=== PATIENT | male | born 1950 | race Caucasian/White ===

== ENCOUNTER 2019-01-02 12:17 | Inpatient (IN) ==
--- OUTSIDE RECORDS SUMMARY | 2019-01-02 12:21 | External Medical Summary | Continuity of Care Document ---
:1950 Author Name Miquel Ramirez, Provider Address Unavailable Unavailable , Care Team Providers Name Role Phone Houston Ramirez, Jeremy Grimes Unavailable [email or web address], [email or web address] Unavailable Unavailable Problems Active medical history not documented Allergies and Adverse Reactions Allergy history not documented Medications Medications not documented Procedures Procedures not documented Immunizations Immunizations not documented Plan of Treatment Planned Observations Planned Goals not documented Results No Known Results Results not documented
[2019-01-02] MEDS ORDERED: dilTIAZem HCl 5 MG/ML 5 ML VIAL IV STA (12:27)
[2019-01-02 13:03] LABS: Basophils # (auto) 0.03 K/uL (0-0.2); Basophils % (auto) 0.4 %; Eosinophils # (auto) 0.18 K/uL (0-0.5); Eosinophils % (auto) 2.5 %; Hematocrit (blood only) 39.2 % (42-52); Hemoglobin 12.9 g/dL (14.0-18.0); Immature Granulocytes # (auto) 0.03 K/uL (0.00-0.02); Immature Granulocytes % (auto) 0.4 %; Lymphocytes # (auto) 0.98 K/uL (1.2-3.4); Lymphocytes % (auto) 13.8 %; Mean Corpuscular Hemoglobin 28.7 pg (25-34); Mean Corpuscular Hgb Conc 32.9 g/dL (32-36); Mean Corpuscular Volume 87.3 fL (80-100); Mean Platelet Volume 10.6 fL (7.4-10.4); Monocytes # (auto) 0.68 K/uL (0.11-0.59); Monocytes % (auto) 9.6 %; Neutrophils # (auto) 5.19 K/uL (1.4-6.5); Neutrophils % (auto) 73.3 %; Platelet Count 116 K/uL (130-400); RDW Coefficient of Variation 17.5 % (11.5-14.5); RDW Standard Deviation 55.8 fL (36.4-46.3); Red Blood Count 4.49 M/uL (4.7-6.1); White Blood Count 7.09 K/uL (4.8-10.8)
[2019-01-02 13:20] LABS: Albumin Level 3.8 gm/dl (3.4-5.0); Aspartate Aminotransferase 24 U/L (15-37); BUN Creatinine Ratio 18.6 (10-20); Blood Urea Nitrogen 21 mg/dl (7-18); Calcium 8.9 mg/dl (8.5-10.1); Carbon Dioxide 24 mmol/L (21-32); Chloride 105 mmol/L (98-107); Creatinine Clr Calc Pharmacy 85.1 ml/min; Est GFR (African American) 77.6; Est GFR (Non-African American) 66.9; Glucose 139 mg/dl (70-99); Magnesium 2.2 mg/dl (1.8-2.4); Sodium 136 mmol/L (136-145)
[2019-01-02 13:21] LABS: Prothrombin Time 42.4 Seconds (9.0-12.0)
[2019-01-02 13:30] LABS: Alanine Aminotransferase 28 U/L (12-78); Albumin Globulin Ratio 1.2 (0.9-2); Alkaline Phosphatase 60 U/L (45-117); Bilirubin,Total 2.2 mg/dl (0.2-1); Globulin 3.1 gm/dl (2.5-4.0); NT Pro B Type Natriuretic Pept 2818 pg/ml (0-900); Total Protein 6.9 gm/dl (6.4-8.2); Troponin I < 0.015 ng/ml (0-0.045)
--- NOTE | 2019-01-02 13:37 | XRay Report ---
XR chest 1V portable CLINICAL HISTORY: 68 years-old Male presenting with weakness. TECHNIQUE: Portable upright AP view of the chest was obtained. COMPARISON: None. FINDINGS: Cardiac silhouette moderately enlarged. Pulmonary vascular prominence. Low lung volumes. Interstitial prominence. No other focal opacity. Trace bilateral pleural effusions are difficult to exclude. No p neumothorax. Degenerative changes of the thoracic spine. Upper abdomen normal. IMPRESSION: 1. Cardiomegaly with volume overload and congestive change. Developing pulmonary edema is difficult to exclude. 2. Low lung volumes. 3. Possible trace pleural effusions. Electronically signed by: Lorne Turner M.D. 01/02/2019 1:36 PM
[2019-01-02 13:43] LABS: T4 Free Thyroxine 1.07 ng/dl (0.8-1.6)
[2019-01-02 13:49] LABS: INR 4.6 (0.9-1.1)
[2019-01-02] MEDS ORDERED: FUROSEMIDE 40 MG/4 ML VIAL IV STA (13:50)
[2019-01-02] MEDS ORDERED: DIGOXIN 125 MCG in SYRINGE 9.5 ML IV STA (14:13)
[2019-01-02] MEDS ORDERED: FUROSEMIDE 20 MG in SYRINGE 0 ML IV ONE (14:13)
--- NOTE | 2019-01-02 15:21 | Cardiology Consultation ---
Date of Consultation January 02, 2019 Assessment & Plan (1) Acute on chronic diastolic (congestive) heart failure: (2) Atrial fibrillation with RVR: (3) Mild aortic stenosis by prior echocardiogram: (4) Supratherapeutic INR: Recommend IV diuresis with Lasix 40 mg twice daily. Short acting diltiazem, 30 mg every 6 hours with plans to transition to long-acting formulation at time of discharge pending clinical response. Add digoxin 250 mcg daily to improve rate control in the setting of borderline resting asymptomatic hypotension. Hold Coumadin today with repeat INR in a.m. Follow fluid balance, daily weight, electrolytes, and GFR. Repeat resting 2D transthoracic echocardiogram. History of Present Illness Reason for Consultation: Atrial fibrillation with rapid ventricular response, congestive heart failure. Requesting Physician: Dr. Dejesus Attending Physician: Dr. Dejesus History of Present Illness 68-year-old male sent from the cardiology clinic to the ER due to rapid atrial fibrillation and progressive dyspnea on exertion. Patient reports worsening symptoms over the past few weeks. Evaluated in the emergency department at [facility] last Sunday. Prescribed diltiazem during evaluation. Inpatient treatment recommended however, patient declined and returned home that day. Shortness of breath has worsened over the past 4 days. + Progressive lower extremity edema and weight gain. Reports noncompliance with medications due to fatigue. Taking rate limiting agents sporadically. Beta-devang discontinued in the past due to fatigue. Currently patient resting comfortably. Heart rate improved with addition of IV diltiazem and digoxin. Also treated with 20 mg IV Lasix in ED. No significant urine output. Allergies Allergy/AdvReac Type Severity Reaction Status Date / Time latex AdvReac Rash Verified 01/02/19 14:40 Home Medications Home Medications Medication Instructions Recorded Confirmed Type atorvastatin 40 mg PO QAM 12/07/17 01/02/19 History digoxin [Digox] 0.125 mg PO HS 12/07/17 01/02/19 History warfarin [Jantoven] 10 mg PO HS 12/07/17 01/02/19 History clindamycin phosphate 1 applic TOPICAL HS 01/02/19 01/02/19 History diltiazem HCl 360 mg PO QAM 01/02/19 01/02/19 History metformin 1,000 mg PO BID 01/02/19 01/02/19 History tamsulosin 0.4 mg PO HS 01/02/19 01/02/19 History Patient History Medical History Diabetic peripheral neuropathy associated with type 2 diabetes mellitus CHF (congestive heart failure) Family History Other Cancer Diabetes Social History Preferred Language: Norwegian Communication Ability: Effective Monitoring Coordinator Required: No Beliefs That Will Affect Care: None Current Living Situation: Significant Other Other Information That Helps Us Care for You: No Feels Safe at Home: Yes Safety Concerns: Feels Safe At This Time Smoking Status: Former smoker Tobacco Type: cigarettes ; Do You Dip or Chew Tobacco: No ; Smoking End Date: 50 years ago ; Second Hand Exposure: No ; Tobacco Cessation Education Requested by Patient: No Hx Alcohol Use: No Hx Substance Use: No Review of Systems Review of Systems: All systems reviewed & are unremarkable except as noted in HPI & below Physical Exam Physical Exam: General: NAD, AAO x3, well nourished. Overweight. HEENT: N ormocephalic. Atraumatic. Conjunctiva pink, no scleral icterus. Neck: No carotid bruits, the carotid upstrokes are brisk. No JVD. No HJR Heart: Irregular rhythm, tachycardic, normal S1 and S2. No murmur appreciated. No murmurs or rub appreciated. PMI is not displaced. No RV heave. Lungs: + Rales at the bases bilaterally. No rhonchi or wheeze. Abdomen: Normal bowel sounds. Soft. Nontender. No masses or organomegaly. No abdominal bruits. Extremities: 1-2+ bilateral pretibial edema. Right-sided pretibial ulceration without erythema. Mild serosanguineous drainage noted. Pulses: radial=2/4, Dorsalis pedis =2/4. Neuro: Cranial nerves grossly intact. No focal motor deficit. Results & Data Vital Signs (Past 12 Hours) Vital Signs Temp Pulse Resp BP Pulse Ox 01/02/19 14:41 115 H 01/02/19 14:40 107 H 24 109/77 97 01/02/19 14:30 97 H 24 95/68 L 98 01/02/19 14:21 104 H 22 98/65 L 97 01/02/19 14:05 104 H 23 91/74 L 98 01/02/19 14:02 103 H 24 91 01/02/19 14:01 103 H 19 98/80 L 96 01/02/19 14:00 102 H 13 95 01/02/19 13:31 105 H 22 110/67 96 01/02/19 13:30 110 H 16 98 01/02/19 13:04 90 01/02/19 13:03 88 L 01/02/19 13:01 124 H 22 95 01/02/19 13:00 116 H 21 120/89 94 01/02/19 12:51 127 H 24 115/94 89 L 01/02/19 12:48 120 H 31 H 01/02/19 12:18 36.3 C L 114 H 24 130/86 91 Laboratory Results Laboratory Results - last 24 hr 01/02/19 01/02/19 01/02/19 12:43 12:43 12:43 WBC 7.09 RBC 4.49 L Hgb 12.9 L Hct 39.2 L MCV 87.3 MCH 28.7 MCHC 32.9 RDW Std Deviation 55.8 H RDW Coeff of [place] 17.5 H Plt Count 116 L MPV 10.6 H Immature Gran % (Auto) 0.4 Neut % (Auto) 73.3 Lymph % (Auto) 13.8 [place] % (Auto) 9.6 Eos % (Auto) 2.5 Baso % (Auto) 0.4 Immature Gran # (Auto) 0.03 H Neut # (Auto) 5.19 Lymph # (Auto) 0.98 L [place] # (Auto) 0.68 H Eos # (Auto) 0.18 Baso # (Auto) 0.03 PT 42.4 H INR 4.6 H Sodium 136 Potassium 4.0 Chloride 105 Carbon Dioxide 24 Anion Gap 8.0 BUN 21 H Creatinine 1.11 Est Cr Clr Drug Dosing 85.1 Est GFR ( Amer) 77.6 Est GFR (Non-Af Amer) 66.9 BUN/Creatinine Ratio 18.6 Glucose 139 H Calcium 8.9 Magnesium 2.2 Total Bilirubin 2.2 H AST 24 ALT 28 Alkaline Phosphatase 60 Troponin I < 0.015 NT-Pro-B Natriuret Pep 2818 H Total Protein 6.9 Albumin 3.8 Globulin 3.1 Albumin/Globulin Ratio 1.2 TSH 5.850 H Free T4 1.07 Digoxin 01/02/19 12:43 WBC RBC Hgb Hct MCV MCH MCHC RDW Std Deviation RDW Coeff of [place] Plt Count MPV Immature Gran % (Auto) Neut % (Auto) Lymph % (Auto) [place] % (Auto) Eos % (Auto) Baso % (Auto) Immature Gran # (Auto) Neut # (Auto) Lymph # (Auto) [place] # (Auto) Eos # (Auto) Baso # (Auto) PT INR Sodium Potassium Chloride Carbon Dioxide Anion Gap BUN Creatinine Est Cr Clr Drug Dosing Est GFR ( Amer) Est GFR (Non-Af Amer) BUN/Creatinine Ratio Glucose Calcium Magnesium Total Bilirubin AST ALT Alkaline Phosphatase Troponin I NT-Pro-B Natriuret Pep Total Protein Albumin Globulin Albumin/Globulin Ratio TSH Free T4 Digoxin 0.1 L ECG Rhythm: atrial fibrillation (110 BPM) Findings: + RBBB
--- NOTE | 2019-01-02 15:53 | History & Physical Report ---
Date of Service January 02, 2019 Assessment & Plan (1) Atrial fibrillation with RVR: history of chronic atrial fibrillation on coumadin presents with A fib in RVR and volume overload echo ordered discussed plan of care with Dr. Craft, consulted on the case added Diltiazem 30mg q6h, Digoxin increased to 250mcg daily additional Lasix 40mg IV at 6pm, monitor diuresis continue usual Verapamil 120mg po daily hold coumadin for INR 4.6 Supratherapeutic INR patient takes coumadin 5mg every sunday then 10mg other days INR 4.6, no bleeding hold coumadin DM Type 2 usually on Metformin 1000mg BID, hold for now check A1c ISS for now HTN BP on the lower side monitor while on new medications, lasix AV stenosis appears to be volume overloaded at this time BPH continue Tamsulosin DVT prophylaxis usually on coumadin for a fib, INR 4.6 hold coumadin Disposition lives at home with famiy History of Present Illness 68-year-old male with history of chronic atrial fibrillation on Coumadin, diabetes, and other problems noted below presenting with shortness of breath times a few weeks. Patient follows with [facility] cardiology clinic. Patient has been having intermittent palpitations and increasing shortness of breath for the past 3 weeks. Over the weekend, the patient presented to [facility] emergency room for the above symptoms. Per Dr. Rodrigez's notes, patient was prescribed oral diltiazem 360 mg daily upon discharge (home against medical advice). Patient reports he takes digoxin 125 mg daily and diltiazem 60 mg daily at home. He was at the [facility] cardiology clinic for follow-up today, found to be in atrial fibrillation with RVR; hence was sent to the ER for evaluation and treatment. At the ER, the patient received digoxin 125 mcg IV, diltiazem 25 mg IV and Lasix 20mg IV. On my exam, patient denies active chest pain, palpitations, dizziness, shortness of breath. Denies other symptoms. Primary Care Provider: Manish Smith MD Allergies Allergy/AdvReac Type Severity Reaction Status Date / Time latex AdvReac Rash Verified 01/02/19 14:40 Home Medications Home Medications Medication Instructions Recorded Confirmed Type atorvastatin 40 mg PO QAM 12/07/17 01/02/19 History digoxin [Digox] 0.125 mg PO HS 12/07/17 01/02/19 History warfarin [Jantoven] 10 mg PO HS 12/07/17 01/02/19 History clindamycin phosphate 1 applic TOPICAL HS 01/02/19 01/02/19 History diltiazem HCl 360 mg PO QAM 01/02/19 01/02/19 History metformin 1,000 mg PO BID 01/02/19 01/02/19 History tamsulosin 0.4 mg PO HS 01/02/19 01/02/19 History Past Med/Surg History Medical History Diabetic peripheral neuropathy associated with type 2 diabetes mellitus CHF (congestive heart failure) Family History Other Cancer Diabetes Social History Preferred Language: Montserratian Communication Ability: Effective Processing Associate Required: No Beliefs That Will Affect Care: None Current Living Situation: Significant Other Other Information That Helps Us Care for You: No Feels Safe at Home: Yes Safety Concerns: Feels Safe At This Time Smoking Status: Former smoker Tobacco Type: cigarettes ; Do You Dip or Chew Tobacco: No ; Smoking End Date: 50 years ago ; Second Hand Exposure: No ; Tobacco Cessation Education Requested by Patient: No Hx Alcohol Use: No Hx Substance Use: No Review of Systems Review of Systems: All systems reviewed & are unremarkable except as noted in HPI & below Physical Exam Physical Exam: General- oriented x 3, not in distress, speaks in sentences with no effort or accessory muscle use Head- atraumatic Eyes- PERRL, EOMI, anicteric ENT- oropharynx clear Neck- supple, no JVD, no adenopathy, no thyromegaly; carotids +2/2, no bruits appreciated Lungs- mild rales at the bases, no wheezing, good air entry bilaterally Heart- mild tachycardia, irregularly irregular rhythm; no murmur, no gallop, no rub appreciated Abdomen- normal bowel sounds, nondistended, soft, nontender, no masses or hepatosplenomegaly Extremities- grade 1 lower leg edema, no calf tenderness; peripheral pulses intact (+) area of healing wound on the right anterior lower leg, no discharge/warmth/tenderness Neuro- alert, oriented x 3; CN 2-12 grossly intact; motor 5/5 bilat erally;sensation 100% on all extremities; no other gross focal neurologic deficits Skin- warm & dry Results & Data Vital Signs (Past 12 Hours) Vital Signs Temp Pulse Resp BP Pulse Ox 01/02/19 15:00 100 H 22 121/82 95 01/02/19 14:41 115 H 01/02/19 14:40 107 H 24 109/77 97 01/02/19 14:30 97 H 24 95/68 L 98 01/02/19 14:21 104 H 22 98/65 L 97 01/02/19 14:05 104 H 23 91/74 L 98 01/02/19 14:02 103 H 24 91 01/02/19 14:01 103 H 19 98/80 L 96 01/02/19 14:00 102 H 13 95 01/02/19 13:31 105 H 22 110/67 96 01/02/19 13:30 110 H 16 98 01/02/19 13:04 90 01/02/19 13:03 88 L 01/02/19 13:01 124 H 22 95 01/02/19 13:00 116 H 21 120/89 94 01/02/19 12:51 127 H 24 115/94 89 L 01/02/19 12:48 120 H 31 H 01/02/19 12:18 36.3 C L 114 H 24 130/86 91 Laboratory Results Cardiac Enzymes 01/02/19 Range/Units 12:43 AST 24 (15-37) U/L Troponin I < 0.015 (0-0.045) ng/ml Coagulation 01/02/19 Range/Units 12:43 PT 42.4 H (9.0-12.0) Seconds CBC 01/02/19 Range/Units 12:43 WBC 7.09 (4.8-10.8) K/uL RBC 4.49 L (4.7-6.1) M/uL Hgb 12.9 L (14.0-18.0) g/dL Hct 39.2 L (42-52) % Plt Count 116 L (130-400) K/uL Neut # (Auto) 5.19 (1.4-6.5) K/uL Lymph # (Auto) 0.98 L (1.2-3.4) K/uL [place] # (Auto) 0.68 H (0.11-0.59) K/uL Eos # (Auto) 0.18 (0-0.5) K/uL Baso # (Auto) 0.03 (0-0.2) K/uL Comprehensive Metabolic Panel 01/02/19 Range/Units 12:43 Sodium 136 (136-145) mmol/L Potassium 4.0 (3.5-5.1) mmol/L Chloride 105 (98-107) mmol/L Carbon Dioxide 24 (21-32) mmol/L BUN 21 H (7-18) mg/dl Creatinine 1.11 (0.6-1.4) mg/dl Glucose 139 H (70-99) mg/dl Calcium 8.9 (8.5-10.1) mg/dl AST 24 (15-37) U/L ALT 28 (12-78) U/L Alkaline Phosphatase 60 (45-117) U/L Total Protein 6.9 (6.4-8.2) gm/dl Albumin 3.8 (3.4-5.0) gm/dl Intake and Output 01/02/19 01/02/19 01/02/19 06:59 14:59 22:59 Other: Weight 116.2 kg Patient Weight 01/03/19 06:59 Weight 116.2 kg Code Status & VTE Plan VTE Prophylaxis Plan VTE Prophylaxis will be ordered: No
[2019-01-02] MEDS ORDERED: ACETAMINOPHEN 325 MG TAB PO PRN (16:27)
[2019-01-02] MEDS ORDERED: GLUCOSE 40% GEL 15 GM TUBE PO PRN (17:04)
[2019-01-02] MEDS ORDERED: GLUCAGON FOR INJ 1 MG VIAL SQ PRN (17:04)
[2019-01-02] MEDS ORDERED: GLUCOSE 10 TABS/TUBE PO PRN (17:04)
[2019-01-02] MEDS ORDERED: CARBOHYDRATES FOR HYPOGLYCEMIA PO PRN (17:04)
[2019-01-02] MEDS ORDERED: DEXTROSE 50% 50 ML SYRINGE IV PRN (17:04)
[2019-01-02] MEDS ORDERED: DIGOXIN 0.25 MG TAB PO SCH (17:15)
--- NOTE | 2019-01-02 17:34 | Emergency Department Note ---
Entered by Ruiz Hernandes acting as a scribe for Gilmar Smith MD History of Present Illness General Chief complaint: Referred by Doctor Stated complaint: HEART, DR REFFERED Time Seen by Provider: 01/02/19 12:25 Source: patient History of Present Illness Provider complaint: CHF exacerbation Onset (ago): hour(s) less than 1 Location: chest Radiation: non-radiation Pain Consistency: + intermittent Maximum Pain Intensity: 1 Associated symptoms: + denies other symptoms, + cough and + other (leg swelling ) The patient is a 68 y/o male with a past medical history of diabetes and CHF, who presents to the emergency department via referral from clinic by Dr. Caro for possible intermittent CHF exacerbation that began prior to arrival. The patient states that his legs have been swelling over the past four days, an occasional cough, and some shortness of breath when walking. The patient reports that he has been taking half doses of his heart medication for the past month because the medication is too strong. The patient denies nausea, vomiting, chest pain, and any other symptoms. Home Medications Home Medications Medication Instructions Recorded Confirmed Type atorvastatin 40 mg PO QAM 12/07/17 01/02/19 History digoxin [Digox] 0.125 mg PO HS 12/07/17 01/02/19 History warfarin [Jantoven] 10 mg PO HS 12/07/17 01/02/19 History clindamycin phosphate 1 applic TOPICAL HS 01/02/19 01/02/19 History diltiazem HCl 360 mg PO QAM 01/02/19 01/02/19 History metformin 1,000 mg PO BID 01/02/19 01/02/19 History tamsulosin 0.4 mg PO HS 01/02/19 01/02/19 History Allergies Allergy/AdvReac Type Severity Reaction Status Date / Time latex AdvReac Rash Verified 01/02/19 14:40 Past Med/Surg History Medical History Diabetic peripheral neuropathy associated with type 2 diabetes mellitus CHF (congestive heart failure) Family History Other Cancer Diabetes Social History Preferred Language: Tajik Communication Ability: Effective Senior Recruiter Required: No Beliefs That Will Affect Care: None Current Living Situation: Significant Other Other Information That Helps Us Care for You: No Feels Safe at Home: Yes Safety Concerns: Feels Safe At This Time Smoking Status: Former smoker Tobacco Type: cigarettes ; Do You Dip or Chew Tobacco: No ; Smoking End Date: 50 years ago ; Second Hand Exposure: No ; Tobacco Cessation Education Requested by Patient: No Hx Alcohol Use: No Hx Substance Use: No Review of Systems See HPI for pertinent positives & negatives. and A total of 10 systems reviewed and were otherwise negative Physical Exam Vital Signs Vital Signs - 24 hr 01/02/19 12:18 01/02/19 12:48 01/02/19 12:51 Temperature 36.3 C L Temperature Source Oral Sepsis Recent Fever Within 48 Hours No Sepsis New/Unexplained Change in Mental Status No Sepsis Action Taken by Nursing No Action Required Pulse Rate 114 H 120 H 127 H Pulse Rate from SpO2 Sensor 75 Pulse Rhythm Regular Pulse Strength Normal Respiratory Rate 24 31 H 24 Respiratory Effort / Characteristics Non-Labored Spontaneous Respiratory Depth Normal Respiratory Pattern Regular Blood Pressure 130/86 115/94 Blood Pressure Mean 100 101 Blood Pressure Position Sitting Pulse Oximetry 91 89 L Oxygen Delivery Method Room Air Oxygen Flow Rate 01/02/19 13:00 01/02/19 13:01 01/02/19 13:03 Temperature Temperature Source Sepsis Recent Fever Within 48 Hours Sepsis New/Unexplained Change in Mental Status Sepsis Action Taken by Nursing Pulse Rate 116 H 124 H Pulse Rate from SpO2 Sensor 96 H 116 H Pulse Rhythm Pulse Strength Respiratory Rate 21 22 Respiratory Effort / Characteristics Respiratory Depth Respiratory Pattern Blood Pressure 120/89 Blood Pressure Mean 99 Blood Pressure Position Pulse Oximetry 94 95 88 L Oxygen Delivery Method Nasal Cannula Room Air Oxygen Flow Rate 2 01/02/19 13:04 01/02/19 13:30 01/02/19 13:31 Temperature Temperature Source Sepsis Recent Fever Within 48 Hours Sepsis New/Unexplained Change in Mental Status Sepsis Action Taken by Nursing Pulse Rate 110 H 105 H Pulse Rate from SpO2 Sensor 106 H 100 H Pulse Rhythm Pulse Strength Respiratory Rate 16 22 Respiratory Effort / Characteristics Respiratory Depth Respiratory Pattern Blood Pressure 110/67 Blood Pressure Mean 81 Blood Pressure Position Pulse Oximetry 90 98 96 Oxygen Delivery Method Nasal Cannula Oxygen Flow Rate 2 01/02/19 14:00 01/02/19 14:01 01/02/19 14:02 Temperature Temperature Source Sepsis Recent Fever Within 48 Hours Sepsis New/Unexplained Change in Mental Status Sepsis Action Taken by Nursing Pulse Rate 102 H 103 H 103 H Pulse Rate from SpO2 Sensor 109 H 119 H 110 H Pulse Rhythm Pulse Strength Respiratory Rate 13 19 24 Respiratory Effort / Characteristics Respiratory Depth Respiratory Pattern Blood Pressure 98/80 L Blood Pressure Mean 86 Blood Pressure Position Pulse Oximetry 95 96 91 Oxygen Delivery Method Oxygen Flow Rate 01/02/19 14:05 01/02/19 14:21 01/02/19 14:30 Temperature Temperature Source Sepsis Recent Fever Within 48 Hours Sepsis New/Unexplained Change in Mental Status Sepsis Action Taken by Nursing Pulse Rate 104 H 104 H 97 H Pulse Rate from SpO2 Sensor 106 H 108 H 103 H Pulse Rhythm Pulse Strength Respiratory Rate 23 22 24 Respiratory Effort / Characteristics Respiratory Depth Respiratory Pattern Blood Pressure 91/74 L 98/65 L 95/68 L Blood Pressure Mean 79 76 77 Blood Pressure Position Pulse Oximetry 98 97 98 Oxygen Delivery Method Oxygen Flow Rate 01/02/19 14:40 01/02/19 14:41 01/02/19 15:00 Temperature Temperature Source Sepsis Recent Fever Within 48 Hours Sepsis New/Unexplained Change in Mental Status Sepsis Action Taken by Nursing Pulse Rate 107 H 115 H 100 H Pulse Rate from SpO2 Sensor 100 H 106 H Pulse Rhythm Pulse Strength Respiratory Rate 24 22 Respiratory Effort / Characteristics Respiratory Depth Respiratory Pattern Blood Pressure 109/77 121/82 Blood Pressure Mean 87 95 Blood Pressure Position Pulse Oximetry 97 95 Oxygen Delivery Method Oxygen Flow Rate GENERAL: Wearing glasses. Mild tachypnea. EYE EXAM: Normal conjunctiva. PERRL, no anisocoria and EOM's grossly intact w/o pain. OROPHARYNX: Moist mucus membranes. Grossly normal dentition. NECK: Supple, no nuchal rigidity, no adenopathy, non-tender. No signs of meningismus. LUNGS: Bibasilar crackles, no wheezing. Mild tachypnea HEART: NSR, no MRG. ABDOMEN: Abdomen soft, non-tender, normo-active bowel sounds, no masses, no rebound or guarding. BACK: No CVA TTP. SKIN: No rashes and no bruising. UPPER EXTREMITIES: Upper extremities are grossly normal. LOWER EXTREMITIES: N1-2+ bilateral edema. No calf pain. Right dorman in bandage NEURO EXAM: A&O x3, cranial nerves II-XII grossly intact, normal speech, moves all 4 extremities on command w/o issue. Course 1242: Past medical records reviewed. The patient was evaluated in room C01. A complete history and physical exam was performed. 1348: I spoke with the patient and updated him on his results. 1418: I spoke with Gabby Sims for Dr. Payne hospitalist. They will evaluate for further management Administered Medications Discontinued Medications Diltiazem HCl (Cardizem) 25 mg IV NOW STA Stop: 01/02/19 12:28 Last Admin: 01/02/19 12:59 Dose: 25 mg Documented by: [id number] Cosigned by: [id number] Furosemide (Lasix) 40 mg IV NOW STA Stop: 01/02/19 13:51 Last Admin: 01/02/19 14:20 Dose: Not Given Documented by: [id number] Digoxin 125 mcg/ Syringe 10 mls @ 2 mls/min IV NOW STA Stop: 01/02/19 14:17 Last Admin: 01/02/19 14:41 Dose: 2 mls/min Documented by: [id number] Furosemide 20 mg/ Syringe 2 mls @ 4 mls/min IV ONE ONE Stop: 01/02/19 14:14 Last Admin: 01/02/19 14:21 Dose: 4 mls/min Documented by: [id number] Medical Decision Making Differential Diagnosis Differential diagnosis: Etiologies such as infections, reactive airway disease, COPD, pneumonia, pleural effusion, pulmonary edema, ARDS, pneumothorax, CHF, cardiac ischemia, cardiac tamponade, dysrhythmia, anemia, pulmonary embolism, musculoskeletal, gastrointestinal process, as well as others were entertained. Medical Records Attestation: I reviewed the patient's medical records. Home Medications Current Medication List: was personally reviewed by me Laboratory Data Attestation: I reviewed the patient's lab results. Result diagrams: 01/02/19 12:43 01/02/19 12:43 Lab Results 01/02/19 01/02/19 01/02/19 Range/Units 12:43 12:43 12:43 WBC 7.09 (4.8-10.8) K/uL RBC 4.49 L (4.7-6.1) M/uL Hgb 12.9 L (14.0-18.0) g/dL Hct 39.2 L (42-52) % MCV 87.3 (80-100) fL MCH 28.7 (25-34) pg MCHC 32.9 (32-36) g/dL RDW Std Deviation 55.8 H (36.4-46.3) fL RDW Coeff of [place] 17.5 H (11.5-14.5) % Plt Count 116 L (130-400) K/uL MPV 10.6 H (7.4-10.4) fL Immature Gran % (Auto) 0.4 % Neut % (Auto) 73.3 % Lymph % (Auto) 13.8 % [place] % (Auto) 9.6 % Eos % (Auto) 2.5 % Baso % (Auto) 0.4 % Immature Gran # (Auto) 0.03 H (0.00-0.02) K/uL Neut # (Auto) 5.19 (1.4-6.5) K/uL Lymph # (Auto) 0.98 L (1.2-3.4) K/uL [place] # (Auto) 0.68 H (0.11-0.59) K/uL Eos # (Auto) 0.18 (0-0.5) K/uL Baso # (Auto) 0.03 (0-0.2) K/uL PT 42.4 H (9.0-12.0) Seconds INR 4.6 H (0.9-1.1) Sodium 136 (136-145) mmol/L Potassium 4.0 (3.5-5.1) mmol/L Chloride 105 (98-107) mmol/L Carbon Dioxide 24 (21-32) mmol/L Anion Gap 8.0 (3-11) BUN 21 H (7-18) mg/dl Creatinine 1.11 (0.6-1.4) mg/dl Est Cr Clr Drug Dosing 85.1 ml/min Est GFR ( Amer) 77.6 Est GFR (Non-Af Amer) 66.9 BUN/Creatinine Ratio 18.6 (10-20) Glucose 139 H (70-99) mg/dl Calcium 8.9 (8.5-10.1) mg/dl Magnesium 2.2 (1.8-2.4) mg/dl Total Bilirubin 2.2 H (0.2-1) mg/dl AST 24 (15-37) U/L ALT 28 (12-78) U/L Alkaline Phosphatase 60 (45-117) U/L Troponin I < 0.015 (0-0.045) ng/ml NT-Pro-B Natriuret Pep 2818 H (0-900) pg/ml Total Protein 6.9 (6.4-8.2) gm/dl Albumin 3.8 (3.4-5.0) gm/dl Globulin 3.1 (2.5-4.0) gm/dl Albumin/Globulin Ratio 1.2 (0.9-2) TSH 5.850 H (0.300-4.500) uIu/ml Free T4 1.07 (0.8-1.6) ng/dl Digoxin (0.8-2.0) ng/ml 01/02/19 Range/Units 12:43 WBC (4.8-10.8) K/uL RBC (4.7-6.1) M/uL Hgb (14.0-18.0) g/dL Hct (42-52) % MCV (80-100) fL MCH (25-34) pg MCHC (32-36) g/dL RDW Std Deviation (36.4-46.3) fL RDW Coeff of [place] (11.5-14.5) % Plt Count (130-400) K/uL MPV (7.4-10.4) fL Immature Gran % (Auto) % Neut % (Auto) % Lymph % (Auto) % [place] % (Auto) % Eos % (Auto) % Baso % (Auto) % Immature Gran # (Auto) (0.00-0.02) K/uL Neut # (Auto) (1.4-6.5) K/uL Lymph # (Auto) (1.2-3.4) K/uL [place] # (Auto) (0.11-0.59) K/uL Eos # (Auto) (0-0.5) K/uL Baso # (Auto) (0-0.2) K/uL PT (9.0-12.0) Seconds INR (0.9-1.1) Sodium (136-145) mmol/L Potassium (3.5-5.1) mmol/L Chloride (98-107) mmol/L Carbon Dioxide (21-32) mmol/L Anion Gap (3-11) BUN (7-18) mg/dl Creatinine (0.6-1.4) mg/dl Est Cr Clr Drug Dosing ml/min Est GFR ( Amer) Est GFR (Non-Af Amer) BUN/Creatinine Ratio (10-20) Glucose (70-99) mg/dl Calcium (8.5-10.1) mg/dl Magnesium (1.8-2.4) mg/dl Total Bilirubin (0.2-1) mg/dl AST (15-37) U/L ALT (12-78) U/L Alkaline Phosphatase (45-117) U/L Troponin I (0-0.045) ng/ml NT-Pro-B Natriuret Pep (0-900) pg/ml Total Protein (6.4-8.2) gm/dl Albumin (3.4-5.0) gm/dl Globulin (2.5-4.0) gm/dl Albumin/Globulin Ratio (0.9-2) TSH (0.300-4.500) uIu/ml Free T4 (0.8-1.6) ng/dl Digoxin 0.1 L (0.8-2.0) ng/ml Imaging Data Radiologist's Impression: Radiology results as stated below per my review and the radiologist's interpretation: XR chest 1V portable CLINICAL HISTORY: 68 years-old Male presenting with weakness. TECHNIQUE: Portable upright AP view of the chest was obtained. COMPARISON: None. FINDINGS: Cardiac silhouette moderately enlarged. Pulmonary vascular prominence. Low lung volumes. Interstitial prominence. No other focal opacity. Trace bilateral pleural effusions are difficult to exclude. No pneumothorax. Degenerative changes of the thoracic spine. Upper abdomen normal. IMPRESSION: 1. Cardiomegaly with volume overload and congestive change. Developing pulmo nary edema is difficult to exclude. 2. Low lung volumes. 3. Possible trace pleural effusions. Electronically signed by: Lorne Turner M.D. 01/02/2019 1:36 PM ECG Data Attestation: I personally reviewed and interpreted this ECG as follows: Indication: + SOB/dyspnea Rate (beats per minute): 110 Rhythm: + atrial fibrillation (with RVR) ECG Intervals/blocks: + Right Bundle branch block ECG ST segments: + T-wave inversions (Anterior and lateral ) ECG Findings: + Other (wide QRS) Blood Pressure Blood Pressure Findings: Low blood pressure Blood Pressure Disposition: further management by hospitalist BHUPENDRA Narrative The patient is a 68 y/o male with a past medical history of diabetes and CHF, who presents to the emergency department via referral from clinic by Dr. Caro for possible intermittent CHF exacerbation that began prior to arrival. Patient was seen and evaluated the bedside. The patient did present as a referral as I did speak with his outpatient pull over Dr. Caro. The patient does have an element of noncompliance and the patient recently left [facility] after likely A. fib with RVR as well as volume overload. Patient does have lower extremity edema bibasilar crackles and is requiring some supplemental oxygen. Patient did a blood work completed patient was given a small dose of Cardizem and a dig level was checked. The patient's Cardizem did help with his A. fib with RVR. The patient was given a small amount of Lasix given that he did have a soft blood pressure but was given digoxin as his digoxin level was low. I did speak the on-call hospitalist agreed to further evaluate treat the patient. Patient was admitted to the medicine service. Impression & Plan Atrial fibrillation with RVR, Volume overload, Breath shortness, Supratherapeut ic INR Critical Care Time Critical Care Time: Yes Total Critical Care Time: 35 I have personally spent greater than 35 minutes of critical care time in direct management of this patient. This includes bedside care, interpretation of diagnostic studies, and testing, discussion with consultants, patient, and famil y members, and other require inpatient management activities. This 35 minutes is in excess of all separately billable procedures. Discharge Plan Visit Data *Final* Discharge Date/Time: 01/02/19 16:02 Chief Complaint: Referred by Doctor Stated Complaint: HEART, DR REFFERED ED Provider: Gilmar Smith Discharge Problem: Atrial fibrillation with RVR, Volume overload, Breath shortness, Supratherapeutic INR Patient Disposition: Admitted As Inpatient Discharge Instructions Interventions: ED Discharge Assessment Last Done: 01/02/19 16:02 Discharge Problem: Volume overload Qualifiers: Hypervolemia type: unspecified Qualified Code(s): E87.70 - Fluid overload, unspecified The scribe's documentation has been prepared under my direction and personally reviewed by me in its entirety. I confirm that the note above accurately reflects all work, treatment, procedures, and medical decision making performed by me.
[2019-01-02] MEDS: dilTIAZem HCL 30 MG TAB PO SCH ×2 (17:51→23:41)
[2019-01-02] MEDS ORDERED: FUROSEMIDE 40 MG in SYRINGE 0 ML IV ONE (18:00)
[2019-01-02] MEDS: TAMSULOSIN HCL 0.4 MG CAP PO SCH (20:34)
[2019-01-02] MEDS ORDERED: SODIUM CHLORIDE 0.65% NA SOLN 45 ML (OCEAN) PRN (20:37)
[2019-01-02] MEDS ORDERED: SODIUM CHLORIDE 0.65% NA SOLN 45 ML (OCEAN) ONE (20:40)
[2019-01-02] MEDS: INSULIN ASPART 100 UNITS/ML 3 ML PEN SC SCH (20:52)
[2019-01-03 07:22] LABS: Hematocrit (blood only) 37.2 % (42-52); Hemoglobin 12.1 g/dL (14.0-18.0); Mean Corpuscular Hemoglobin 28.3 pg (25-34); Mean Corpuscular Hgb Conc 32.5 g/dL (32-36); Mean Corpuscular Volume 87.1 fL (80-100); RDW Coefficient of Variation 17.5 % (11.5-14.5); RDW Standard Deviation 55.7 fL (36.4-46.3); Red Blood Count 4.27 M/uL (4.7-6.1); White Blood Count 6.59 K/uL (4.8-10.8)
[2019-01-03 07:51] LABS: Mean Platelet Volume 10.4 fL (7.4-10.4); Platelet Count 99 K/uL (130-400)
[2019-01-03 07:52] LABS: Basophils # (auto) 0.04 K/uL (0-0.2); Basophils % (auto) 0.6 %; Eosinophils # (auto) 0.21 K/uL (0-0.5); Eosinophils % (auto) 3.2 %; Immature Granulocytes # (auto) 0.03 K/uL (0.00-0.02); Immature Granulocytes % (auto) 0.5 %; Lymphocytes % (auto) 10.6 %; Monocytes # (auto) 0.63 K/uL (0.11-0.59); Monocytes % (auto) 9.6 %; Neutrophils # (auto) 4.98 K/uL (1.4-6.5); Neutrophils % (auto) 75.5 %; Platelet Estimate Decreased (Normal)
[2019-01-03 07:53] LABS: Estimated Average Glucose 171 mg/dl; Hemoglobin A1C 7.6 % (4.5-5.6)
[2019-01-03 07:56] LABS: BUN Creatinine Ratio 16.6 (10-20); Calcium 8.6 mg/dl (8.5-10.1); Creatinine Clr Calc Pharmacy 89.5 ml/min; Est GFR (African American) 84.9; Est GFR (Non-African American) 73.3; Potassium 3.6 mmol/L (3.5-5.1)
[2019-01-03] MEDS: dilTIAZem HCL 30 MG TAB PO SCH ×3 (07:59→20:03)
[2019-01-03] MEDS: INSULIN ASPART 100 UNITS/ML 3 ML PEN SC SCH ×4 (07:59→20:44)
[2019-01-03] MEDS ORDERED: FUROSEMIDE 40 MG in SYRINGE 0 ML IV SCH (09:00)
[2019-01-03] MEDS ORDERED: FUROSEMIDE 40 MG/4 ML VIAL IV SCH (09:00)
[2019-01-03 09:06] LABS: INR 4.1 (0.9-1.1)
--- NOTE | 2019-01-03 11:40 | Cardiology Progress Note ---
Date of Service January 03, 2019 Assessment & Plan (1) Acute on chronic diastolic (congestive) heart failure: (2) Atrial fibrillation with RVR: (3) Mild aortic stenosis by prior echocardiogram: (4) Supratherapeutic INR: Heart rate remains elevated. Recommend the following medication changes: Add metoprolol 25 mg 3 times daily. Transition diltiazem to 60 mg 3 times daily. Hold digoxin. Monitor telemetry. INR remains supratherapeutic. Hold warfarin today. Repeat INR in a.m. Volume status improved. Reduce Lasix to 40 mg IV daily. Follow fluid balance, daily weight, GFR, and electrolytes. Echocardiogram demonstrates mildly reduced LV systolic function with global hypokinesis. Ejection fraction 40 to 44%. Suspect tachycardia induced secondary to rapid A. fib and noncompliance. Prior cardiac catheterization performed 01/29/2017 demonstrated mild nonobstructive CAD. Subjective Patient seen and examined the bedside. Diuresed more than 3 L overnight. Volume status improved. Heart rate remains elevated on telemetry. Denies palpitations. Previously reported dyspnea improving. Denies orthopnea or PND. Patient willing to retrial beta devang therapy. Reports lower extremity cramping. Offers no other complaints at this time. Review of Systems Review of Systems: All systems reviewed & are unremarkable except as noted in HPI & below Physical Exam Physical Exam: General: NAD, AAO x3, well nourished. Overweight. HEENT: Normocephalic. Atraumatic. Conjunctiva pink, no scleral icterus. Neck: No carotid bruits, the carotid upstrokes are brisk. No JVD. No HJR Heart: Irregular rhythm, tachycardic, normal S1 and S2. No murmur appreciated. No murmurs or rub appreciated. PMI is not displaced. No RV heave. Lungs: Scant crackles at the left base. No rhonchi or wheeze. Abdomen: Normal bowel sounds. Soft. Nontender. No masses or organomegaly. No abdominal bruits. Extremities: 1+ bilateral pretibial edema. Right-sided pretibial ulceration without erythema. Mild serosanguineous drainage noted. Pulses: radial=2/4, Dorsalis pedis =2/4. Neuro: Cranial nerves grossly intact. No focal motor deficit. Results & Data Vital Signs (Past 12 Hours) Vital Signs Temp Pulse Resp BP Pulse Ox 01/03/19 07:30 36.6 C 85 20 149/79 H 94 01/03/19 03:51 94 01/03/19 03:49 36.3 C L 105 H 22 139/95 82 L
[2019-01-03] MEDS: METOPROLOL TARTRATE 25 MG TAB PO SCH ×2 (12:55→20:03)
--- NOTE | 2019-01-03 15:45 | Hospitalist Progress Note ---
Date of Service January 03, 2019 Assessment & Plan (1) Atrial fibrillation with RVR: Has history of chronic atrial fibrillation on coumadin Presented with A fib in RVR and volume overload Has been on diltiazem 30mg q6h, received digoxin increased to 250mcg daily and now discontinued Lasix 40mg IV twice daily Beta-devang has been started Acute on chronic diastolic CHF Has been getting Lasix 40 mg IV twice a day with good diuresis Appreciate cardiology input and recommendation Echocardiogram demonstrates mildly reduced LV systolic function with global hypokinesis. Ejection fraction 40 to 44%. Supratherapeutic INR patient takes coumadin 5mg every sunday then 10mg other days INR 4.6, no bleeding Repeat INR this morning was 4.1 Will restart Coumadin when INR comes to therapeutic range DM Type 2 usually on Metformin 1000mg BID, hold for now check A1c-7.6 h ISS for now HTN BP on the lower side monitor while on new medications, lasix AV stenosis appears to be volume overloaded at this time BPH continue Tamsulosin DVT prophylaxis usually on coumadin for a fib, INR 4.6 hold coumadin Disposition lives at home with family Subjective 01/03 The patient was seen and examined in telemetry unit He was admitted with increasing weight gain with increasing shortness of breath for the last few days He denies any chest pain and/or palpitation today Denies any chest pain Has been feeling a lot better since admission Review of Systems Review of Systems: All systems reviewed and are unremarkable except as noted below Respiratory: + dyspnea on exertion; no cough and no dyspnea Cardiovascular: + edema; no chest pain Physical Exam Constitutional: well developed, well nourished and + obese; no acute distress Eyes: PERRL, conjunctivae normal, anicteric sclerae ENMT: external ear and nose normal, oropharynx normal Neck: trachea midline, no thyromegaly Respiratory: normal respiratory effort; no respiratory distress Auscultation: lungs clear to auscultation bilaterally and + diminished lung sounds; no crackles Cardiovascular: Rate/Rhythm: + abnormal rate and + abnormal rhythm Heart Sounds: no murmur Gastrointestinal (Abdomen): Inspection/Auscultation: abdomen normal to inspection and normal bowel sounds Percussion/Palpation: abdomen soft Musculoskeletal: No acute arthritis in any joints Neurologic: Alert, awake and oriented x3 Results & Data Vital Signs (Past 12 Hours) Vital Signs Temp Pulse Pulse Pulse Resp BP BP 11/08/19 15:26 36.7 C 104 H 18 149/86 H 01/03/19 12:00 36.5 C 108 H 22 111/83 01/03/19 07:30 36.6 C 85 20 149/79 H 01/03/19 03:51 01/03/19 03:49 36.3 C L 105 H 22 139/95 Pulse Ox 01/03/19 15:26 95 01/03/19 12:00 95 01/03/19 07:30 94 01/03/19 03:51 94 01/03/19 03:49 82 L Laboratory Results Short CBC 01/03/19 Range/Units 07:07 WBC 6.59 (4.8-10.8) K/uL Hgb 12.1 L (14.0-18.0) g/dL Hct 37.2 L (42-52) % Plt Count 99 L (130-400) K/uL BMP 01/03/19 07:07 Sodium 140 Potassium 3.6 Chloride 107 Carbon Dioxide 26 BUN 17 Creatinine 1.03 Glucose 115 H Calcium 8.6 Medications Administered Current Inpatient Medications Acetaminophen (Tylenol) 650 mg PO Q4H PRN PRN Reason: Pain or Fever Stop: 02/01/19 16:26 Dextrose (Dextrose 50%) 25 - 50 ml IV UD PRN; Protocol PRN Reason: Hypoglycemia Protocol Stop: 02/01/19 17:03 Digoxin (Lanoxin) 0.25 mg PO DAILY@1600 [facility] Stop: 02/01/19 17:14 Last Admin: 01/02/19 17:52 Dose: 0.25 mg Documented by: Diltiazem HCl (Cardizem) 60 mg PO TID [facility] Stop: 02/02/19 13:59 Last Admin: 01/03/19 12:55 Dose: 60 mg Documented by: Fluticasone Propionate (Flonase) 2 sprays NA BID [facility] Stop: 02/02/19 20:59 Glucagon (Glucagen) 1 mg SQ UD PRN; Protocol PRN Reason: Hypoglycemia Protocol Stop: 02/01/19 17:03 Glucose (Glucose 40%) 15 - 30 gm PO UD PRN; Protocol PRN Reason: Hypoglycemia Protocol Stop: 02/01/19 17:03 Glucose (Dex4 Glucose) 4 - 8 tabs PO UD PRN; Protocol PRN Reason: Hypoglycemia Protocol Stop: 02/01/19 17:03 Furosemide 40 mg/ Syringe 4 mls @ 4 mls/min IV DAILY [facility] Stop: 02/03/19 08:59 Insulin Aspart (Novolog Flexpen) 0 units SC ACHS [facility] Stop: 02/01/19 20:59 Last Admin: 01/03/19 11:51 Dose: Not Given Documented by: Metoprolol Tartrate (Lopressor) 25 mg PO TID [facility] Stop: 02/02/19 13:59 Last Admin: 01/03/19 12:55 Dose: 25 mg Documented by: Miscellaneous (Carbohydrates For Hypoglycemia) 15 - 30 gm PO UD PRN PRN Reason: Hypoglycemia Protocol Stop: 02/01/19 17:03 Sodium Chloride ([place] Nasal) 1 sprays NA PRN PRN PRN Reason: Congestion Stop: 02/01/19 20:36 Tamsulosin HCl (Flomax) 0.4 mg PO HS [facility] Stop: 02/01/19 20:59 Last Admin: 01/02/19 20:34 Dose: 0.4 mg Documented by:
[2019-01-03] MEDS: FLUTICASONE PROPIONATE NA SPR 16 GM BTL SCH (20:04)
[2019-01-03] MEDS: TAMSULOSIN HCL 0.4 MG CAP PO SCH (20:04)
[2019-01-04 06:37] LABS: Basophils # (auto) 0.04 K/uL (0-0.2); Basophils % (auto) 0.4 %; Eosinophils # (auto) 0.31 K/uL (0-0.5); Eosinophils % (auto) 3.4 %; Hematocrit (blood only) 39.9 % (42-52); Hemoglobin 13.3 g/dL (14.0-18.0); Immature Granulocytes # (auto) 0.04 K/uL (0.00-0.02); Immature Granulocytes % (auto) 0.4 %; Lymphocytes # (auto) 1.36 K/uL (1.2-3.4); Mean Corpuscular Hemoglobin 28.8 pg (25-34); Mean Corpuscular Hgb Conc 33.3 g/dL (32-36); Mean Corpuscular Volume 86.4 fL (80-100); Monocytes # (auto) 0.97 K/uL (0.11-0.59); Monocytes % (auto) 10.7 %; Neutrophils # (auto) 6.37 K/uL (1.4-6.5); Neutrophils % (auto) 70.1 %; Platelet Count 126 K/uL (130-400); RDW Coefficient of Variation 17.3 % (11.5-14.5); RDW Standard Deviation 54.3 fL (36.4-46.3); Red Blood Count 4.62 M/uL (4.7-6.1); White Blood Count 9.09 K/uL (4.8-10.8)
[2019-01-04 06:47] LABS: INR 2.4 (0.9-1.1); Prothrombin Time 23.2 Seconds (9.0-12.0)
[2019-01-04 07:10] LABS: BUN Creatinine Ratio 18.9 (10-20); Calcium 8.9 mg/dl (8.5-10.1); Creatinine Clr Calc Pharmacy 92.1 ml/min; Est GFR (African American) 89.1; Est GFR (Non-African American) 76.8; Magnesium 2.2 mg/dl (1.8-2.4); Potassium 3.8 mmol/L (3.5-5.1)
[2019-01-04 07:28] VITALS: TEMP 97.7
[2019-01-04] MEDS: FLUTICASONE PROPIONATE NA SPR 16 GM BTL SCH (08:11)
[2019-01-04] MEDS: dilTIAZem HCL 30 MG TAB PO SCH (08:11)
[2019-01-04] MEDS: METOPROLOL TARTRATE 25 MG TAB PO SCH (08:11)
[2019-01-04] MEDS ORDERED: FUROSEMIDE 40 MG in SYRINGE 0 ML IV SCH (09:00)
[2019-01-04] MEDS: INSULIN ASPART 100 UNITS/ML 3 ML PEN SC SCH ×2 (10:21→13:59)
--- NOTE | 2019-01-04 11:08 | Cardiology Progress Note ---
Date of Service January 04, 2019 Assessment & Plan (1) Acute on chronic diastolic (congestive) heart failure: Symptoms improved with IV diuretics and adjustment medical therapy. We will optimize medical regime Discontinue metoprolol tartrate, stop digoxin with admission levels reflecting noncompliance Begin metoprolol succinate 25 mg a.m., 50 mill grams p.m. Add furosemide 20 mg p.o. daily with spironolactone 12.5 g p.o. daily Diltiazem be continued for short-term at 180 mg p.o. daily extended release for heart rate control CHF instructions Patient will need close clinical follow-up including lab work to follow INR, renal function/potassium as well as heart rate and volume status (2) Atrial fibrillation with RVR: (3) Mild aortic stenosis by prior echocardiogram: (4) Supratherapeutic INR: As above Echocardiogram demonstrates mildly reduced LV systolic function with global hypokinesis. Ejection fraction 40 to 44%. Suspect tachycardia induced secondary to rapid A. fib and noncompliance. Prior cardiac catheterization performed 01/29/2017 demonstrated mild nonobstructive CAD. Subjective . Patient seen and examined, chart, medications, telemetry reviewed. Patient subjectively feels improved since admission. Lower extremity edema improved less dyspneic. Heart rate still mildly elevated though under better control. No fevers chills or productive cough. No bleeding issues. Patient feels in part admission secondary to intolerance of prior medications Patient is anxious to be discharged today Physical Exam Constitutional: WD/WN, vitals as above Eyes: PERRL, conjunctivae normal, anicteric sclerae ENMT: external ear and nose normal, oropharynx normal Neck: trachea midline, no thyromegaly Respiratory: normal respiratory effort, lungs clear to auscultation Cardiovascular: Rate/Rhythm: + irregularly irregular Heart Sounds: normal S1 and normal S2; no gallop and no murmur Palpation: normal PMI Vessels: normal carotid upstroke and radial pulses present; no JVD and no carotid bruit Extremities: + edema (Trace edema, improved chronic stasis and induration changes per) Gastrointestinal (Abdomen): normal bowel sounds, soft, nontender, no hepatosplenomegaly Musculoskeletal: no cyanosis or clubbing, extremities motor strength 5/5 Skin: no rashes, warm and dry Neurologic: PERRL, EOMI, accommodation nl, no face palsy, no dysarthria Psychiatric: A+Ox3, euthymic affect Results & Data Vital Signs (Past 12 Hours) Vital Signs Temp Pulse Pulse Resp BP Pulse Ox 01/04/19 07:27 36.5 C 102 H 21 128/80 92 01/04/19 03:51 36.3 C L 104 H 24 121/81 95 01/04/19 00:27 94 H 01/03/19 23:41 36.4 C L 96 H 22 99/70 L 95
[2019-01-04] MEDS ORDERED: dilTIAZem HCL 180 MG CAPCR PO SCH (11:30)
[2019-01-04] MEDS ORDERED: METOPROLOL SUCC 25MG EXT REL TAB PO SCH (11:30)
--- NOTE | 2019-01-04 12:41 | Hospitalist Progress Note ---
Date of Service January 04, 2019 Assessment & Plan (1) Atrial fibrillation with RVR: Has history of chronic atrial fibrillation on coumadin Presented with A fib in RVR and volume overload Has been on diltiazem 30mg q6h, received digoxin increased to 250mcg daily and now discontinued Lasix 40mg IV twice daily Beta-devang has been started Appreciate senior game designer input and recommendation Cardiac medications have been adjusted as prescribed on discharge Acute on chronic diastolic CHF Has been getting Lasix 40 mg IV twice a day with good diuresis Appreciate cardiology input and recommendation Echocardiogram demonstrates mildly reduced LV systolic function with global hypokinesis. Ejection fraction 40 to 44%. Will get Lasix 20 mg p.o. daily with spironolactone 12.5 mg p.o. daily on discharge Supratherapeutic INR patient takes coumadin 5mg every sunday then 10mg other days INR 4.6, no bleeding Repeat INR this morning was 4.1 INR is 2.6 today and will restart Coumadin from this afternoon DM Type 2 usually on Metformin 1000mg BID, hold for now check A1c-7.6 h ISS for now HTN BP on the lower side monitor while on new medications, lasix AV stenosis appears to be volume overloaded at this time BPH continue Tamsulosin DVT prophylaxis usually on coumadin for a fib, INR 4.6 Coumadin and will be restarted from today Disposition lives at home with family Discharge home this afternoon Subjective 01/03 The patient was seen and examined in telemetry unit He was admitted with increasing weight gain with increasing shortness of breath for the last few days He denies any chest pain and/or palpitation today Denies any chest pain Has been feeling a lot better since admission 01/04 The patient was seen and examined in telemetry unit He has been feeling a lot better and denies any shortness of breath on exertion No chest pain and/or palpitation, no abdominal pain nausea or vomiting His heart rate is under control Review of Systems Review of Systems: All systems reviewed and are unremarkable except as noted below Respiratory: + dyspnea on exertion; no cough and no dyspnea Cardiovascular: + edema; no chest pain Physical Exam Physical Exam: No apparent distress at rest Constitutional: well developed, well nourished and + obese; no acute distress and not ill appearing Eyes: PERRL, conjunctivae normal, anicteric sclerae ENMT: external ear and nose normal, oropharynx normal Neck: trachea midline, no thyromegaly Respiratory: normal respiratory effort; no respiratory distress Ausc ultation: lungs clear to auscultation bilaterally and + diminished lung sounds; no crackles Cardiovascular: Rate/Rhythm: + abnormal rate and + abnormal rhythm Heart Sounds: no murmur Gastrointestinal (Abdomen): Inspection/Auscultation: abdomen normal to inspection and normal bowel sounds Percussion/Palpation: abdomen soft Musculoskeletal: No acute arthritis in any joints Results & Data Vital Signs (Past 12 Hours) Vital Signs Temp Pulse Resp BP Pulse Ox 01/04/19 11:15 36.5 C 98 H 18 99/68 L 92 01/04/19 07:27 36.5 C 102 H 21 128/80 92 01/04/19 03:51 36.3 C L 104 H 24 121/81 95 Laboratory Results Short CBC 01/04/19 Range/Units 06:14 WBC 9.09 (4.8-10.8) K/uL Hgb 13.3 L (14.0-18.0) g/dL Hct 39.9 L (42-52) % Plt Count 126 L (130-400) K/uL BMP 01/04/19 06:14 Sodium 141 Potassium 3.8 Chloride 107 Carbon Dioxide 28 BUN 19 H Creatinine 0.99 Glucose 112 H Calcium 8.9 Medications Administered Current Inpatient Medications Acetaminophen (Tylenol) 650 mg PO Q4H PRN PRN Reason: Pain or Fever Stop: 02/01/19 16:26 Dextrose (Dextrose 50%) 25 - 50 ml IV UD PRN; Protocol PRN Reason: Hypoglycemia Protocol Stop: 02/01/19 17:03 Digoxin (Lanoxin) 0.25 mg PO DAILY@1600 [facility] Stop: 02/01/19 17:14 Last Admin: 01/02/19 17:52 Dose: 0.25 mg Documented by: Diltiazem HCl (Cardizem Cd) 180 mg PO QAM [facility] Stop: 02/03/19 11:29 Fluticasone Propionate (Flonase) 2 sprays NA BID [facility] Stop: 02/02/19 20:59 Last Admin: 01/04/19 08:11 Dose: 2 sprays Documented by: Furosemide (Lasix) 20 mg PO QAM [facility] Stop: 02/04/19 08:59 Glucagon (Glucagen) 1 mg SQ UD PRN; Protocol PRN Reason: Hypoglycemia Protocol Stop: 02/01/19 17:03 Glucose (Glucose 40%) 15 - 30 gm PO UD PRN; Protocol PRN Reason: Hypoglycemia Protocol Stop: 02/01/19 17:03 Glucose (Dex4 Glucose) 4 - 8 tabs PO UD PRN; Protocol PRN Reason: Hypoglycemia Protocol Stop: 02/01/19 17:03 Insulin Aspart (Novolog Flexpen) 0 units SC ACHS [facility] Stop: 02/01/19 20:59 Last Admin: 01/04/19 10:21 Dose: Not Given Documented by: Metoprolol Succinate (Toprol Xl) 25 mg PO QAM [facility] Stop: 02/03/19 11:29 Metoprolol Succinate (Toprol Xl) 50 mg PO QPM [facility] Stop: 02/03/19 20:59 Miscellaneous (Carbohydrates For Hypoglycemia) 15 - 30 gm PO UD PRN PRN Reason: Hypoglycemia Protocol Stop: 02/01/19 17:03 Sodium Chloride (Manele Nasal) 1 sprays NA PRN PRN PRN Reason: Congestion Stop: 02/01/19 20:36 Spironolactone (Aldactone) 12.5 mg PO DAILY [facility] Stop: 02/04/19 08:59 Tamsulosin HCl (Flomax) 0.4 mg PO HS [facility] Stop: 02/01/19 20:59 Last Admin: 01/03/19 20:04 Dose: 0.4 mg Documented by:
[2019-01-04 13:58] VITALS: BP 123/81; O2SAT 95
[2019-01-04 14:34] VITALS: PULSE 108
[2019-01-04] MEDS ORDERED: METOPROLOL SUCC 50MG EXT REL TAB PO SCH (21:00)
[2019-01-05] MEDS ORDERED: SPIRONOLACTONE 25 MG TAB PO SCH (09:00)
[2019-01-05] MEDS ORDERED: FUROSEMIDE 20 MG TAB PO SCH (09:00)
--- NOTE | 2019-01-06 10:38 | Discharge Summary ---
Date of Service January 06, 2019 Admission HPI Per Admitting Provider 68-year-old male with history of chronic atrial fibrillation on Coumadin, diabetes, and other problems noted below presenting with shortness of breath times a few weeks. Patient follows with [facility] cardiology clinic. Patient has been having intermittent palpitations and increasing shortness of breath for the past 3 weeks. Over the weekend, the patient presented to [facility] emergency room for the above symptoms. Per Dr. Rodrigez's notes, patient was prescribed oral diltiazem 360 mg daily upon discharge (home against medical advice). Patient reports he takes digoxin 125 mg daily and diltiazem 60 mg daily at home. He was at the [facility] cardiology clinic for follow-up today, found to be in atrial fibrillation with RVR; hence was sent to the ER for evaluation and treatment. At the ER, the patient received digoxin 125 mcg IV, diltiazem 25 mg IV and Lasix 20mg IV. On my exam, patient denies active chest pain, palpitations, dizziness, shortness of breath. Denies other symptoms. Primary Care Provider: Manish Smith MD Admission Exam Per Admitting Provider Physical Exam: General- oriented x 3, not in distress, speaks in sentences with no effort or accessory muscle use Head- atraumatic Eyes- PERRL, EOMI, anicteric ENT- oropharynx clear Neck- supple, no JVD, no adenopathy, no thyromegaly; carotids +2/2, no bruits appreciated Lungs- mild rales at the bases, no wheezing, good air entry bilaterally Heart- mild tachycardia, irregularly irregular rhythm; no murmur, no gallop, no rub appreciated Abdomen- normal bowel sounds, nondistended, soft, nontender, no masses or hepatosplenomegaly Extremities- grade 1 lower leg edema, no calf tenderness; peripheral pulses intact (+) area of healing wound on the right anterior lower leg, no discharge/warmth/tenderness Neuro- alert, oriented x 3; CN 2-12 grossly intact; motor 5/5 bilaterally;sensation 100% on all extremities; no other gross focal neurologic deficits Skin- warm & dry Principal Diagnosis Atrial fibrillation with RVR, acute on chronic diastolic CHF, type 2 diabetes mellitus Discharge Exam Constitutional well developed, well nourished and + obese; no acute distress and not ill appearing Eyes PERRL, conjunctivae normal, anicteric sclerae ENMT external ear and nose normal, oropharynx normal Neck trachea midline, no thyromegaly Respiratory normal respiratory effort; no respiratory distress Auscultation: lungs clear to auscultation bilaterally and + diminished lung sounds; no crackles Cardiovascular Rate/Rhythm: + abnormal rate and + abnormal rhythm Heart Sounds: no murmur Gastrointestinal (Abdomen) Inspection/Auscultation: abdomen normal to inspection and normal bowel sounds Percussion/Palpation: abdomen soft Discharge Data Allergies Allergy/AdvReac Type Severity Reaction Status Date / Time latex AdvReac Rash Verified 01/02/19 14:40 Consultations 01/02/19 13:51 ED Decision to Admit Stat 01/02/19 16:27 Consult Cardiology Routine Hospital Course (1) Atrial fibrillation with RVR: Has history of chronic atrial fibrillation on coumadin Presented with A fib in RVR and volume overload Has been on diltiazem 30mg q6h, received digoxin increased to 250mcg daily and now discontinued Lasix 40mg IV twice daily Beta-devang has been started Appreciate loan examiner input and recommendation Cardiac medications have been adjusted as prescribed on discharge Acute on chronic diastolic CHF Has been getting Lasix 40 mg IV twice a day with good diuresis Appreciate cardiology input and recommendation Echocardiogram demonstrates mildly reduced LV systolic function with global hypokinesis. Ejection fraction 40 to 44%. Will get Lasix 20 mg p.o. daily with spironolactone 12.5 mg p.o. daily on discharge Supratherapeutic INR patient takes coumadin 5mg every sunday then 10mg other days INR 4.6, no bleeding Repeat INR this morning was 4.1 INR is 2.6 today and will restart Coumadin from this afternoon DM Type 2 usually on Metformin 1000mg BID, hold for now check A1c-7.6 h ISS for now HTN BP on the lower side monitor while on new medications, lasix AV stenosis appears to be volume overloaded at this time BPH continue Tamsulosin DVT prophylaxis usually on coumadin for a fib, INR 4.6 Coumadin and will be restarted from today Disposition lives at home with family Discharge home this afternoon Total Time Total Time Spent Total Time Spent (In Minutes): 35 minutes Total Time Includes: Examination of the Patient, Discharge Planning, Medication Reconciliation and Communication With Other Providers Discharge Plan Discharge Items Patient Disposition: Home - Self-Care Reason For Visit: AFIB IN RVR,CHF Discharge Diagnosis: Atrial fibrillation with RVR, acute on chronic diastolic CHF, type 2 diabetes m ellitus Condition on Discharge: Good Activity: Resume your previous activity Non-emergency contact: Primary Care Provider Call non-emergency contact if: you have any medication questions and your symptoms worsen Follow-up/Referrals: Manish Smith MD [Primary Care Provider] - 01/07/19 12:45 pm (Your appointment will be with Dr. Hurtado, Dr. Smith is not available Cardiology office will call with appointment) Diet: Carb Consistent or DM2 and Heart Healthy Addtl Attending Provider Instructions: Restrict fluid to 1500 mL daily No extra salt in diet Please take your medications as prescribed Please have regular follow-up with the coagulation clinic Pending Studies at Discharge: No Stand-Alone Forms: My [employer], Smoking Cessation Medications and DC Order Prescriptions: New diltiazem HCl 180 mg Capsule,Extended Release 24hr 180 mg PO QAM 30 Days Qty: 30 RF: 0 metoprolol succinate 50 mg Tablet Extended Release 24 Hr 50 mg PO QPM 30 Days Qty: 30 RF: 0 spironolactone 25 mg Tablet 12.5 mg PO DAILY 30 Days Qty: 15 RF: 0 furosemide 20 mg Tablet 20 mg PO QAM 30 Days Qty: 30 RF: 0 metoprolol succinate 25 mg Tablet Extended Release 24 Hr 25 mg PO QAM 30 Days Qty: 30 RF: 0 Continued atorvastatin 40 mg Tablet 40 mg PO QAM RF: 0 warfarin 10 mg tablet 10 mg PO HS RF: 0 metformin 1,000 mg tablet 1,000 mg PO BID RF: 0 clindamycin phosphate 1 % lotion 1 applic topical HS RF: 0 tamsulosin 0.4 mg capsule 0.4 mg PO HS RF: 0 Discontinued digoxin [Digox] 125 mcg Tablet 0.125 mg PO HS RF: 0 diltiazem HCl 360 mg capsule,extended release 24hr 360 mg PO QAM RF: 0 Discharge Orders: Discharge Order (Routine); Ordered 01/04/19 Ordered By: Subhash Kwan/Other Patient Handouts: Log Blood Sugar, Diabetes Heart Disease, Meds Take Active Role Admission Data Admit Date/Time: 01/02/19 15:09 Attending Provider: Subhash Pimentel Admit Provider: Patrick Dejesus Primary Care Provider: Manish Smith Other Providers: Patrick Dejesus ; Dion Craft Other Interventions: Discharge Summary Assessment (RN) Last Done: 01/04/19 14:35 DC Date/Time DO NOT enter until pt leaves facility: 01/04/19 15:00
== END 2019-01-04 15:00 | disposition home or self-care (01) | DRG 308 ==
LOC: ED 12:17 → SUATTDRO 15:09 → 2S 15:09